=== PATIENT | male | born 1965 | race Two or more races ===

== ENCOUNTER 2023-12-29 22:05 | Inpatient (IN) | payer MEDICAID ==
[~2023-12-29] VITALS: Ht 157.5 cm; Wt 47.2 kg
[2023-12-30 02:01] LABS: BASOPHILS % (AUTO) 0.9 % (0.0-2.0); EOSINOPHILS # (AUTO) 0.1 K/uL (0.0-0.7); EOSINOPHILS % (AUTO) 1.6 % (0.0-6.0); HEMATOCRIT 29 % (39-51); HEMOGLOBIN 9.9 g/dL (13.5-17.5); LYMPHOCYTES # (AUTO) 0.4 K/uL (0.8-4.8); LYMPHOCYTES % (AUTO) 10.7 % (20.0-44.0); MEAN CORPUSCULAR HEMOGLOBIN 32 PG (26.0-33.0); MEAN CORPUSCULAR HGB CONC 34 g/dl (31.0-36.0); MEAN CORPUSCULAR VOLUME 95 fL (80-96); MONOCYTES # (AUTO) 0.3 K/uL (0.1-1.30); MONOCYTES % (AUTO) 8.8 % (2.0-12.0); NEUTROPHILS # (AUTO) 2.9 K/uL (1.8-8.9); PLATELET COUNT (AUTO) 70 K/uL (150-450); RED BLOOD CELL COUNT(AUTO) 3.06 MIL/uL (4.5-6.0); RED CELL DISTRIBUTION WIDTH 16.9 % (11.5-15.0); WHITE BLOOD COUNT (AUTO) 3.7 K/uL (4.3-11.0)
[2023-12-30 02:14] LABS: BILIRUBIN,URINE NEGATIVE (NEGATIVE); BLOOD, URINE 3+ Ery/uL (NEGATIVE); COLOR,URINE YELLOW (YELLOW); KETONES,URINE TRACE mg/dL (NEGATIVE); LEUKOCYTE ESTERASE ,URINE 1+ (NEGATIVE); NITRITE, URINE NEGATIVE (NEGATIVE); PROTEIN,URINE 1+ mg/dl (NEGATIVE); UGLUCOSE NEGATIVE (NEGATIVE)
[2023-12-30 02:15] LABS: APPEARANCE,URINE HAZY (CLEAR)
[2023-12-30 02:27] LABS: CALCIUM, SERUM 8.6 mg/dL (8.5-10.1); CREATININE 1.5 mg/dL (0.6-1.3); POTASSIUM 4.5 mmol/L (3.5-5.1)
[2023-12-30 02:34] LABS: BILIRUBIN,DIRECT 0.3 mg/dL (0.0-0.2); BILIRUBIN,TOTAL 0.5 mg/dL (0.2-1.0); TOTAL PROTEIN, SERUM 7.4 g/dL (6.4-8.2)
[2023-12-30 02:36] LABS: ADD URINE CULTURE YES; BACTERIA,URINE Few /HPF (None Seen); RBC,URINE TOO NUMEROUS TO COUN /HPF (0-2); SQUAMOUS EPITHELIAL CELL,UR Rare /HPF (None Seen); TRIPLE PHOSPHATE CRYSTAL,UR Many /HPF (None Seen)
[2023-12-30] MEDS ORDERED: ONDANSETRON HCL/PF 4 MG/2 ML VIAL ONE (04:20)
[2023-12-30] MEDS ORDERED: CEFEPIME 1 GM VIAL ONE (04:20)
[2023-12-30] MEDS ORDERED: MORPHINE SULFATE INJ 4 MG/ML DISP.SYRIN ONE (04:20)
[2023-12-30] MEDS: CEFEPIME 1 GM in IV D5W 50 ML IV ONE (04:43)
[2023-12-30] MEDS: ONDANSETRON HCL/PF 4 MG/2 ML VIAL IV ONE (04:45)
[2023-12-30] MEDS: MORPHINE SULFATE INJ 2 MG/ML DISP.SYRIN IV ONE (04:45)
[2023-12-30] MEDS ORDERED: ACETAMINOPHEN 325 MG TABLET PO PRN (05:00)
[2023-12-30] MEDS ORDERED: DEXTROSE 50%-WATER 50 ML DISP.SYRIN IV PRN (05:00)
[2023-12-30 08:00] VITALS: BP 132/80; TEMP 97.7; O2SAT 96
[2023-12-30] MEDS: INSULIN REGULAR, HUMAN 100 UNIT/ML 3 ML VIAL SQ PRN (08:14)
[2023-12-30] MEDS: BLOOD SUGAR DIAGNOSTIC 1 EACH STRIP IN SCH (08:16)
[2023-12-30] MEDS: MORPHINE SULFATE INJ 2 MG/ML DISP.SYRIN IV PRN (08:26)
[2023-12-30] MEDS ORDERED: DULO60CA45 PO (11:19)
[2023-12-30] MEDS ORDERED: TRAM50TA2 PO (11:19)
[2023-12-30] MEDS ORDERED: ACET325T53 PO (11:19)
[2023-12-30] MEDS ORDERED: TAMS-12 PO (11:19)
[2023-12-30] MEDS ORDERED: LEVO75TA7 PO (11:19)
[2023-12-30] MEDS ORDERED: RIFA550T PO (11:19)
[2023-12-30] MEDS ORDERED: FURO40TA5 PO (11:19)
[2023-12-30] MEDS ORDERED: SPIR25TA PO (11:19)
[2023-12-30] MEDS: ALBUMIN 25% 25 GM in PREMIX 1 EA IV SCH (11:24)
[2023-12-30] MEDS: ONDANSETRON HCL/PF 4 MG/2 ML VIAL IVP PRN (12:18)
[2023-12-30] MEDS: THERAHONEY GEL 1.5 OZ TUBE TP SCH (12:18)
[2023-12-30] MEDS: CEFEPIME 2 GM in IV D5W 100 ML IV SCH (15:15)
[2023-12-30 16:00] VITALS: BP 154/87; TEMP 98.1; O2SAT 99
[2023-12-30 19:33] LABS: INR 1.08 (0.91-1.10); PROTHROMBIN TIME 11.4 SECS (9.2-11.1)
[2023-12-30 20:00] VITALS: BP 117/79; TEMP 97.5; O2SAT 100
[2023-12-31 06:47] LABS: BASOPHILS % (AUTO) 1.1 % (0.0-2.0); EOSINOPHILS # (AUTO) 0.1 K/uL (0.0-0.7); EOSINOPHILS % (AUTO) 3.3 % (0.0-6.0); HEMATOCRIT 27 % (39-51); LYMPHOCYTES # (AUTO) 0.4 K/uL (0.8-4.8); MEAN CORPUSCULAR HEMOGLOBIN 32 PG (26.0-33.0); MEAN CORPUSCULAR HGB CONC 34 g/dl (31.0-36.0); MEAN CORPUSCULAR VOLUME 95 fL (80-96); MONOCYTES # (AUTO) 0.3 K/uL (0.1-1.30); MONOCYTES % (AUTO) 10.8 % (2.0-12.0); NEUTROPHILS % (AUTO) 69.8 % (43.0-81.0); PLATELET COUNT (AUTO) 59 K/uL (150-450); RED CELL DISTRIBUTION WIDTH 16.6 % (11.5-15.0); WHITE BLOOD COUNT (AUTO) 2.9 K/uL (4.3-11.0)
[2023-12-31 07:57] LABS: ALBUMIN 3.2 g/dL (3.4-5.0); BILIRUBIN,TOTAL 0.6 mg/dL (0.2-1.0); CALCIUM, SERUM 8.9 mg/dL (8.5-10.1); CREATININE 1.6 mg/dL (0.6-1.3); MAGNESIUM 2.3 mg/dL (1.8-2.4); POTASSIUM 4.8 mmol/L (3.5-5.1); TOTAL PROTEIN, SERUM 7.7 g/dL (6.4-8.2)
[2023-12-31 08:00] VITALS: BP 133/79; TEMP 98.2; O2SAT 99
[2023-12-31 08:35] LABS: CREATININE, URINE 22.6 MG/DL (30.0-125.0); URINE TOTAL PROTEIN 112.5 mg/dL (0-11.9)
[2023-12-31 09:11] LABS: APPEARANCE,URINE SLIGHTLY CLOUDY (CLEAR); BILIRUBIN,URINE NEGATIVE (NEGATIVE); BLOOD, URINE 3+ Ery/uL (NEGATIVE); COLOR,URINE YELLOW (YELLOW); KETONES,URINE NEGATIVE (NEGATIVE); LEUKOCYTE ESTERASE ,URINE 1+ (NEGATIVE); NITRITE, URINE NEGATIVE (NEGATIVE); PROTEIN,URINE 2+ mg/dl (NEGATIVE); UGLUCOSE NEGATIVE (NEGATIVE); UROBILINOGEN,URINE 0.2 EU/dL (0.2)
[2023-12-31 09:24] LABS: ADD URINE CULTURE YES; BACTERIA,URINE Rare /HPF (None Seen); SQUAMOUS EPITHELIAL CELL,UR Rare /HPF (None Seen)
[2023-12-31 09:25] LABS: EOSINOPHIL,URINE None Seen
[2023-12-31 10:25] LABS: ANISOCYTOSIS 1+; BASOPHILS % (MANUAL) 0 % (0.0-2.0); EOSINOPHILS % (MANUAL) 4 % (0-4); HYPOCHROMASIA 1+; LYMPHOCYTES % (MANUAL) 13 % (16-48); MONOCYTES % (MANUAL) 11 % (0-11.0); NEUTROPHILS % (MANUAL) 72 (42-76); PLATELET ESTIMATE DECREASED
[2023-12-31 16:00] VITALS: BP 113/70; TEMP 98.4; O2SAT 100
[2023-12-31] MEDS: GLUCERNA SHAKE 237 ML CAN PO SCH (17:17)
[2023-12-31 17:38] LABS: WBC, BODY FLUID 144 /cu. mm. (0-200)
[2023-12-31 17:40] LABS: APPEARANCE,SPUN,BODY FLUID CLEAR (CLEAR)
[2023-12-31 17:41] LABS: PROTEIN, BODY FLUID 2.6 G/DL; TOTAL VOLUME,BODY FLUID 5500 mL
[2023-12-31 19:35] LABS: POLYNUCLEAR, BODY FLUID 1 % (0-25)
[2023-12-31 19:43] LABS: MACROPHAGES, BODY FLUID 69
[2023-12-31 20:00] VITALS: BP_SYST 125; BP_DIAS 75; BP_DIAS 76; TEMP 98.4; O2SAT 100
[2023-12-31] MEDS ORDERED: POLYETHYLENE GLYCOL 3350 17 GM POWD.PACK PO SCH (21:00)
[2023-12-31] MEDS ORDERED: SENNOSIDES 8.6 MG TABLET PO SCH (22:00)
[2024-01-01 08:00] VITALS: BP 115/72; TEMP 99.1; O2SAT 100
[2024-01-01 08:06] LABS: PTH, INTACT 39 pg/mL (15-65)
[2024-01-01] MEDS ORDERED: LEVO500T90 PO (10:13)
[2024-01-01 15:10] LABS: *SPE A/G RATIO 0.8 (0.7-1.7); *SPE ALBUMIN 3.3 g/dL (2.9-4.4); *SPE ALPHA-1-GLOBULIN 0.2 g/dL (0.0-0.4); *SPE ALPHA-2-GLOBULIN 0.6 g/dL (0.4-1.0); *SPE BETA GLOBULIN 1.1 g/dL (0.7-1.3); *SPE GLOBULIN, TOTAL 3.9 g/dL (2.2-3.9); *SPE M-SPIKE Not Observed g/dL (Not Observed); *SPE PROTEIN TOTAL 7.2 g/dL (6.0-8.5)
== END 2024-01-01 13:20 | disposition home health service (06) ==
LOC: ER 22:21 → EDBD 12-30 05:09 → MED 12-30 05:09
PROVIDERS: ADMIT Internal Medicine; ATTEND Internal Medicine
PROC: 0JBR0ZZ Excision of Left Foot Subcutaneous Tissue and Fascia, Open Approach (ICD-10-PCS; principal; 2023-12-31)
PROC: 0W9G3ZZ Drainage of Peritoneal Cavity, Percutaneous Approach (ICD-10-PCS; 2023-12-31)
DX: K74.60 Unspecified cirrhosis of liver (principal); N17.0 Acute kidney failure with tubular necrosis; L97.422 Non-pressure chronic ulcer of left heel and midfoot with fat layer exposed; K76.6 Portal hypertension; R18.8 Other ascites; D63.8 Anemia in other chronic diseases classified elsewhere; E11.621 Type 2 diabetes mellitus with foot ulcer; T87.81 Dehiscence of amputation stump; D69.59 Other secondary thrombocytopenia; M89.8X9 Other specified disorders of bone, unspecified site; E11.42 Type 2 diabetes mellitus with diabetic polyneuropathy; I10 Essential (primary) hypertension; K80.20 Calculus of gallbladder without cholecystitis without obstruction; Z79.4 Long term (current) use of insulin; M25.572 Pain in left ankle and joints of left foot; I12.9 Hypertensive chronic kidney disease with stage 1 through stage 4 chronic kidney disease, or unspecified chronic kidney disease; N18.9 Chronic kidney disease, unspecified; Y83.8 Other surgical procedures as the cause of abnormal reaction of the patient, or of later complication, without mention of misadventure at the time of the procedure; Y92.89 Other specified places as the place of occurrence of the external cause; S31.20XA Unspecified open wound of penis, initial encounter; Z89.411 Acquired absence of right great toe; Z89.422 Acquired absence of other left toe(s)
CPT/HCPCS: 36415; 49083; 73700-TC; 76770-TC; 80048-TC; 80053-TC; 80076-TC; 81001; 82040-TC; 82105; 82550-TC; 82570-TC; 82962-TC; 83690-TC; 83735-TC; 83970; 84100-TC; 84155; 84165; 84300-TC; 85025-TC; 85610-TC; 87040-TC; 87081-TC; 87086-TC; 89051-TC; A4216; A4223; A6253; A6403; G0378; J0692; J1815; J2270; J2405; J7050; J7060; P9047